=== PATIENT | male | born 1975 | race African-American/Black ===

== ENCOUNTER 2016-10-31 20:23 | Inpatient (IN) ==
--- NOTE | 2016-10-31 20:39 | Emergency Department Note ---
Disposition Clinical Impression: Cocaine abuse Chest pain Qualifiers: Chest pain type: unspecified Qualified Code(s): R07.9 - Chest pain, unspecified Disposition: Admitted As Inpatient Condition: Good Time of Disposition: 23:55 Chest Pain HPI - General Chief Complaint: ED Chest Pain Stated Complaint: Chest Pain Time Seen by Provider: 10/31/16 20:31 Source: patient Mode of arrival: EMS Vital Signs Reviewed: Yes Nursing Notes Reviewed: Yes - History of Present Illness HPI Narrative: 40-year-old male presents to the ED via EMS for chest pain. Patient states that she had used cocaine on Saturday and started having chest pain. So [facility] because he wanted to be admitted for drug rehabilitation. Once he is at the [facility] and they felt that he should be worked up for his chest pain and sent him to our ED. Patient states that his chest pain is on the left side localized to a small area and a burning sensation that radiates up to his neck and into his back and shoulder the symptoms are associated with sweating. States the pain is a 5.5 out of 10. Patient states he has not used any cocaine since Saturday but has used his pain medication prescribed for his back. Patient states that he smoked and snorted the cocaine. - Related Data Home Medications Medication Instructions Recorded Confirmed Atorvastatin Calcium [Lipitor] 20 mg PO HS 10/31/16 10/31/16 Betamethasone Valerate 1 appl TP BID 10/31/16 10/31/16 BuPROPion SR (12 HR) [Wellbutrin 150 mg PO BID 10/31/16 10/31/16 SR] Dextrose [Glucose] 4 gm PO AD PRN 10/31/16 10/31/16 Ergocalciferol (VITAMIN D2) 50,000 unit PO QWEEK 10/31/16 10/31/16 [Vitamin D2] Fexofenadine HCl 60 mg PO BID PRN 10/31/16 10/31/16 Fluticasone Propionate Nasal 100 mcg NS DAILY 10/31/16 10/31/16 [Flonase] Gabapentin [Neurontin] 500 mg PO TID 10/31/16 10/31/16 Insulin ASPART [Novolog Flexpen] 15 unit SQ QPM 10/31/16 10/31/16 Insulin ASPART [Novolog Flexpen] 20 unit SQ QAM 10/31/16 10/31/16 Insulin Glargine [Lantus] 40 unit SQ BID 10/31/16 10/31/16 Lisinopril [Zestril] 20 mg PO BID 10/31/16 10/31/16 Meloxicam [Mobic] 7.5 mg PO DAILY 10/31/16 10/31/16 Metoprolol [Lopressor] 12.5 mg PO BID 10/31/16 10/31/16 Montelukast [Singulair] 10 mg PO HS 10/31/16 10/31/16 Nicotine Patch [Nicoderm] 14 mg TD DAILY 10/31/16 10/31/16 Oxycodone HCl/Acetaminophen 1 each PO Q8H PRN 10/31/16 10/31/16 [Percocet 10-325 mg Tablet] Sildenafil Citrate [Viagra] 50 mg PO AD PRN 10/31/16 10/31/16 Tizanidine HCl 4 mg PO TID PRN 10/31/16 10/31/16 Allergies Allergy/AdvReac Type Severity Reaction Status Date / Time iodine Allergy Swelling Verified 10/31/16 20:30 of Lip/Tongue/Throat shellfish derived Allergy Swelling Verified 10/31/16 20:30 of Lip/Tongue/Throat hydrochlorothiazide AdvReac Abdominal Verified 10/31/16 20:30 Pain metformin AdvReac Abdominal Verified 10/31/16 20:30 Pain All systems ED: reviewed and negative except as stated. Constitutional: Reports: other (Swelling). Denies: fever Cardiovascular: Reports: chest pain. Denies: palpitations Respiratory: Reports: dyspnea Gastrointestinal: Denies: abdominal pain Musculoskeletal: Reports: back pain, neck pain Neurological: Reports: other (States that he had some burning in his left leg after walking a long distance.) Physical Exam - General Limitations: no limitations General appearance: alert, in no apparent distress - Head Head exam: atraumatic, normocephalic - Eye Eye exam: Present: normal appearance - Neck Neck exam: Present: normal inspection, trachea midline - Chest Chest inspection: Present: normal inspection, symmetric chest wall rise - Respiratory Respiratory exam: Present: normal lung sounds bilaterally. Absent: respiratory distress, wheezes - Cardiovascular Cardiovascular exam: Present: regular rate, normal rhythm, +S1, +S2 - Abdominal Exam Abdominal exam: Present: soft, Non-Tender, normal bowel sounds - Back Exam Back exam: Present: normal inspection - Neurological Exam Neurological exam: Present: alert, oriented X3 - Psychiatric Psychiatric exam: Present: normal affect, normal mood - Skin Skin exam: Present: warm, dry, intact Course Vital Signs Temperature 98.5 F 10/31/16 20:30 Pulse Rate 80 10/31/16 20:30 Respiratory Rate 18 10/31/16 20:30 Blood Pressure 146/105 10/31/16 20:30 O2 Sat by Pulse Oximetry 100 10/31/16 20:30 Temperature 97.9 F 10/31/16 23:54 Pulse Rate 72 10/31/16 23:54 Respiratory Rate 16 10/31/16 23:54 Blood Pressure 132/85 10/31/16 23:54 O2 Sat by Pulse Oximetry 99 10/31/16 23:54 Oxygen Delivery Oxygen Delivery Room Air Chest Pain - MDM Narrative Medical decision making narrative: 40-year-old male presents to ED with chest pain. States that he uses cocaine on Saturday. [facility] for [facility] for [facility] on they had a pretty much normal workup there but felt that he should be evaluated here. Due to the patient still having chest pain we will admit the patient. A workup that was done at the [facility] had negative troponin, white count 8.4, sodium 132, potassium 4.7 , glucose 3:30, creatinine 1.4. Patient will be admitted for chest pain rule out and patient stated that he would like to enter a rehabilitation treatment. I spoke with the hospitalist and due to slight elevation in V2 on EKG he asked that we speak with cardiology to make sure that he is okay for admission. Metabolic Specialist Dr. Miller said that if it is less than 1.5 mm of elevation that it was not enough elevation to indicate intervention. Patient was accepted by hospitalist and admitted. - Medical Records Medical records reviewed: Yes I reviewed the patient's medical records. - Lab Data Lab results reviewed: Yes I reviewed the patient's lab results. - Radiology Data Radiology results reviewed: Yes I reviewed the patient's radiology results. - EKG Data EKG attestation: Yes I reviewed and interpreted this EKG. EKG results narrative: EKG shows sinus rhythm at a rate of 72. pr interval of 13 QRS duration of 98 QTc of 401 axis normal to slightly left axis deviation. less than 1mm ST elevation in V2 and V3. Attestation Statement - Attestation Attestation: I examined this patient and my medical decision-making was reviewed with the BLAST SETTER/PA/Advanced Practice Nurse/Resident Physician. I agree with the documented findings, disposition and treatment plan as described except to the extent set forth below. Male patient with transfer from the [facility]. He was found to have chest pain after several days of cocaine use. He has no recent stress testing or cardiac catheterization. His EKG shows minimal ST segment changes but no STEMI. His cardiac biomarkers were checked and then subsequently rechecked both of which were negative. He was given aspirin, nitroglycerin, and valium. He did have minimal ongoing chest pain. Plan to admit for ACS rule out and evaluation of cocaine abuse in the setting of chest pain.
[2016-10-31] MEDS ORDERED: *HR* FentaNYL (PF) 100 MCG/2 ML VIAL IVP ONE (22:24)
[2016-10-31] MEDS ORDERED: diazePAM 10 MG/2 ML SYRINGE IVP ONE (22:24)
[2016-11-01] MEDS ORDERED: *HR* Morphine 2 MG/ML SYRINGE IVP PRN (01:32)
[2016-11-01] MEDS ORDERED: Naloxone 0.4 MG/ML INJ IVP PRN (01:32)
[2016-11-01] MEDS ORDERED: Acetaminophen 325 MG TABLET PO PRN (01:32)
[2016-11-01] MEDS ORDERED: Ondansetron ODT 4 MG TAB.RAPDIS SL PRN (01:32)
[2016-11-01] MEDS ORDERED: *HR* Dextrose 50 % in Water (Syg) 50 ML SYRINGE IVP PRN (01:35)
[2016-11-01] MEDS ORDERED: D5% in Water 1,000 ML IVC PRN (01:35)
[2016-11-01] MEDS ORDERED: Dextrose Gel 15 GM PO PRN ×2 (01:35)
[2016-11-01] MEDS ORDERED: *HR* OxyCODONE/APAP 10/325 TABLET PO PRN (01:38)
[2016-11-01] MEDS ORDERED: Loratadine 10 MG TABLET PO PRN (01:38)
--- NOTE | 2016-11-01 01:41 | Internal Med History&Physical ---
Date of Encounter: 11/01/16 Time of Encounter: 01:38 Assessment and Plan (1) Chest pain Current visit: Yes Status: Acute Noncardiac chest pain by description left-sided sharp radiating to left shoulder has been present for 5 days. Unsure of exacerbating factors. - EKG demonstrated normal sinus rhythm with [address] elevation on leads V2 but no other leads. Risk factors: Cocaine abuse on a beta napoleon, uncontrolled type 2 diabetes, hypertension, daily smoker Plan: - Troponins 3, nothing by mouth currently, echocardiogram, morphine, statin, aspirin. - Discontinue beta napoleon Stress test Qualifiers: Chest pain type: unspecified Qualified Code(s): R07.9 - Chest pain, unspecified (2) Cocaine abuse Current visit: Yes Status: Acute Patient was educated on the risks of continued cocaine abuse with his multiple medical conditions. He was highly advised to continue with drug treatment through the [facility]. (3) Type II diabetes mellitus Current visit: Yes Status: Acute Uncontrolled Plan: - Before meals at bedtime glucose checks, low-dose sliding scale insulin Qualifiers: Diabetes mellitus complication detail: with unspecified neuropathy Qualified Code(s): E11.40 - Type 2 diabetes mellitus with diabetic neuropathy, unspecified; Z79.4 - parts counterman (current) use of insulin (4) HTN (hypertension) Current visit: Yes Status: Acute Continue patients lisinopril. Discontinue beta napoleon. Monitor vitals, blood pressure continues to rise patient may require hydralazine addition. Qualifiers: Qualified Code(s): I10 - Essential (primary) hypertension (5) Tobacco abuse Current visit: Yes Status: Acute Pack per day smoker, tobacco abuse of his multiple medical risk factors for increased cardiac disease. Tobacco cessation discussed. Internal Medicine - H&P: HPI History of present illness: 40 yo -Sammar[place] male transferred from the [facility] with chest pain. Patient states that for started having left-sided chest pain that radiated to his neck on the left side described as sharp and at its worst 10/10 on Saturday after snorting cocaine. He states that he has an addiction to cocaine has been doing for years. This time he snorted cocaine he developed this left-sided chest pain that did not improve. He continued through the weekend waxed and waned in nature. He is unsure if ambulating, walking on flat surfaces are upstairs made it worse but he did have episodes where the pain would be 5 out of 10 in escalate to a 10 out of 10. He denies any history of having chest pain prior or any known heart disease. He is a uncontrolled type II diabetic with diminished sensory in his bilateral feet. He says he supposed to be taking aspirin at home but since he ran out he has not been taking it for at least a month. He did notice that his chest pain did improve when he arrived at our emergency department after transfer from the [facility] and received aspirin. He presented today to the [facility] for evaluation for left- sided chest pain that was not improving. Prior he was advised not to do cocaine anymore and says he has not used any drugs since Saturday. He denies substernal chest pressure or radiation up to his jaw or down his arm. He states that he is compliant with his current medications despite telling me that he has not been filling his aspirin. Currently he is chest pain-free which she said completely resolved after receiving fentanyl was IV while in the emergency department. He does have a significant family history of uncontrolled diabetics including mom dad and siblings also have heart disease. He mentions that he does have some gait instability ever since he had a stroke several years ago when he was 34. 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 He said that he followed up with neurologist and refuses any intervention on the brain aneurysm. He said that he had follow-up MRI scans that the aneurysm healed itself. When asked if he was taking his beta napoleon while doing cocaine he said yes. He said that taking the beta napoleon actually made him feel better. He denies any current headaches, blurred vision, nausea vomiting diarrhea constipation, palpitations, shortness of breath. He has had increased urination but said that is due to being hyperglycemic. When asked about his foot health he says that he had kicked her radiator 2 months ago with his left foot and has some bruising on his toes but never followed up for further evaluation. He continues to have discomfort when stepping wrong on his foot. Past Med Surg Social Fam HX - Past Medical History Medical history: diabetes - Social History Smoking Status: Current every day smoker Smokeless Tobacco Status: No Alcohol use: occasionally Drug use: cocaine, opiates, methamphetamine Internal Medicine - H&P: Meds Atorvastatin Calcium [Lipitor] 20 mg PO HS 10/31/16 [History] Betamethasone Valerate 1 appl TP BID 10/31/16 [History] BuPROPion SR (12 HR) [Wellbutrin SR] 150 mg PO BID 10/31/16 [History] Dextrose [Glucose] 4 gm PO AD PRN 10/31/16 [History] Ergocalciferol (VITAMIN D2) [Vitamin D2] 50,000 unit PO QWEEK 10/31/16 [History] Fexofenadine HCl 60 mg PO BID PRN 10/31/16 [History] Fluticasone Propionate Nasal [Flonase] 100 mcg NS DAILY 10/31/16 [History] Gabapentin [Neurontin] 500 mg PO TID 10/31/16 [History] Insulin ASPART [Novolog Flexpen] 15 unit SQ QPM 10/31/16 [History] Insulin ASPART [Novolog Flexpen] 20 unit SQ QAM 10/31/16 [History] Insulin Glargine [Lantus] 40 unit SQ BID 10/31/16 [History] Lisinopril [Zestril] 20 mg PO BID 10/31/16 [History] Meloxicam [Mobic] 7.5 mg PO DAILY 10/31/16 [History] Metoprolol [Lopressor] 12.5 mg PO BID 10/31/16 [History] Montelukast [Singulair] 10 mg PO HS 10/31/16 [History] Nicotine Patch [Nicoderm] 14 mg TD DAILY 10/31/16 [History] Oxycodone HCl/Acetaminophen [Percocet 10-325 mg Tablet] 1 each PO Q8H PRN [History] Sildenafil Citrate [Viagra] 50 mg PO AD PRN 10/31/16 [History] Tizanidine HCl 4 mg PO TID PRN 10/31/16 [History] Allergies iodine Allergy (Verified 10/31/16 20:30) Swelling of Lip/Tongue/Throat shellfish derived Allergy (Verified 10/31/16 20:30) Swelling of Lip/Tongue/Throat hydrochlorothiazide Adverse Reaction (Verified 10/31/16 20:30) Abdominal Pain metformin Adverse Reaction (Verified 10/31/16 20:30) Abdominal Pain All Systems PM: A 10-system review of systems was performed and is negative for pertinent findings except as documented above in the HPI. - Constitutional Constitutional: no chills, no fever(s), no night sweats - EENT Eyes: no change in vision, no discharge, no pain, no photophobia Ears: no ear discharge, no ear pain, no tinnitus Nose, mouth and throat: no dysphagia, no nasal discharge, no neck pain, no sore throat - Cardiovascular Cardiovascular ROS IM: chest pain, no diaphoresis, no dyspnea, no lightheadedness, no palpitations, no syncope - Respiratory Respiratory: no cough, no dyspnea, no wheezing, no excessive phlegm production - Gastrointestinal Gastrointestinal: no abdominal pain, no diarrhea, no hematemesis, no hematochezia, no melena, no nausea, no vomiting - Musculoskeletal Musculoskeletal ROS IM: no numbness, no tingling - Integumentary Integumentary IM: no rash, no unusual bruising - Neurological Neurological ROS: no confusion, no convulsions, no focal weakness, no numbness, no tingling, no tremor(s) - Hematologic/Lymphatic Hematologic/Lymphatic: no easy bruising - Constitutional Vitals: Temp Pulse Resp BP Pulse Ox 97.9 F 72 16 132/85 99 10/31/16 23:54 10/31/16 23:54 10/31/16 23:54 10/31/16 23:54 10/31/16 23:54 Exam: General: Patient alert, awake, oriented 3, interactive, in no acute distress HEENT: Normocephalic, atraumatic, pupils equal reactive to light, nasal cavity patent and open septum median position, oral mucosa moist, uvula midline, neck supple trachea midline no palpable lymphadenopathy, no thyromegaly. Chest: Symmetric bilateral correlating with respiratory effort, effort nonlabored. Cardiac: Regular rate and rhythm, positive S1 and S2. no bruits appreciated bilateral carotids, Radial pulses 2+ bilateral, posterior tibial and dorsal pedal pulses 1+ bilateral. Respiratory: Clear to auscultation all lung rankni Abdomen: Soft, nontender, positive bowel sounds, no palpable masses appreciated on examination Extremities: Symmetric bilateral, bilateral lower extremities without erythema or edema patient moving all 4 extremities spontaneously. Patients fourth digit on his left foot demonstrates ecchymosis and tenderness to palpation. Patient has hammertoes bilaterally Neurologic: No focal deficits appreciated on examination. Face symmetric, muscle strength symmetric bilateral upper and lower extremities. Internal Med - H&P Results - Labs CBC & Chem 7: 11/01/16 01:48
[2016-11-01 06:14] LABS: Basophils # 0.1 K/mcL (0.0-0.2); Basophils % 0.6 %; Eosinophils # 0.1 K/mcL (0.0-0.6); Eosinophils % 1.3 %; Hematocrit 46.4 % (37.5-50.1); Immature Granulocytes % 0.3 % (0-4); Lymphocytes # 3.8 K/mcL (0.6-4.6); Lymphocytes % 48.8 %; Mean Corpuscular HGB Conc 34.5 g/dL (31.6-35.5); Mean Corpuscular Hemoglobin 30.2 pg (28.0-33.3); Mean Corpuscular Volume 87.5 fL (83.0-100.0); Mean Platelet Volume 10.5 fL (9.4-12.4); Monocytes # 0.4 K/mcL (0.0-1.3); Monocytes % 5.7 %; Neutrophils # 3.3 K/mcL (1.6-8.9); Platelet Count 257 K/mcL (140-400); Segmented Neutrophils % 43.3 %
[2016-11-01 06:31] LABS: Alanine Aminotransferase 18 Units/L (0-55); Albumin 3.8 g/dL (3.5-5.0); Alkaline Phosphatase 90 Units/L (38-126); Aspartate Amino Transferase 19 Units/L (5-34); BUN/Creatinine Ratio 13 (6-26); Bilirubin,Total 0.9 mg/dL (0.2-1.2); Blood Urea Nitrogen 15 mg/dL (8-26); Calcium 9.7 mg/dL (8.6-10.8); Carbon Dioxide 24 mEq/L (19-29); Chloride 96 mEq/L (98-109); Chol/HDL Ratio 7.3 (0-4.9); Cholesterol 213 mg/dL (< 200); Globulin 3.8 g/dL (2.4-3.5); Glucose 334 mg/dL (70-99); HDL Cholesterol 29 mg/dL (40-59); LDL Cholesterol,Calculated 138 mg/dL (0-99); Osmolality,Calculated 286 (280-300); Potassium 3.9 mEq/L (3.5-4.5); Total Protein 7.6 g/dL (6.0-8.3); Triglycerides 229 mg/dL (< 150); eGFR For African Americans > 60 (> 60); eGFR For Non-African Americans > 60 (> 60)
[2016-11-01 06:32] LABS: Sodium 131 mEq/L (136-145)
[2016-11-01] MEDS ORDERED: FluocinoNIDE 0.05% CRM 15 GM TUBE TP SCH (09:00)
[2016-11-01] MEDS ORDERED: BuPROPion SR (12 HR) 150 MG TABLET PO SCH (09:00)
[2016-11-01] MEDS ORDERED: NON-FORMULARY MEDICATION 1 EACH EACH (Insulin Glargine [Lantus] 20 UNIT) SQ SCH (09:00)
[2016-11-01] MEDS ORDERED: Nicotine 14 MG PATCH.TD24 TD SCH (09:00)
[2016-11-01] MEDS ORDERED: Insulin DETEMIR 100 UNIT/ML X5UNITS SQ SCH (09:00)
[2016-11-01] MEDS ORDERED: Fluticasone Propionate Nasal 50 MCG/SPRAY BOTTLE NS SCH (09:00)
[2016-11-01] MEDS ORDERED: Gabapentin 100 MG CAPSULE PO SCH (09:00)
[2016-11-01] MEDS ORDERED: Lisinopril 20 MG TABLET PO SCH (09:00)
[2016-11-01] MEDS ORDERED: Regadenoson 0.4 MG/5 ML SYRINGE IVP ONE (09:19)
[2016-11-01] MEDS: Insulin LISPRO 300 UNITS/3 ML VIAL SQ SCH ×2 (11:26→11:38)
[2016-11-01 11:50] VITALS: BP 168/98
--- NOTE | 2016-11-01 12:02 | Nuclear Medicine Stress Report ---
Regadenoson Nuclear Stress Name: Unique Hampton Date of Study: 11/01/2016 Date: 1975 Ht: 73.0 in Medical Record#: [id number] Age: 40 Wt: 254.0 lb Gender: Male Order #: [id number] Location: [facility] Room: Supervising Provider: Antonio Barrios CNP Reading Physician: Clyde Terrell MD, [facility] Ordering Physician: Sarina Reed MD Primary Care Physician: [facility] Stress Technologist: Jud Hobbs RRT,[facility] Bonded Strand Operator: Erik Lopez Indications: Chest Pain Impression: Patient reported mild chest pain prior to the test. Chest pain did not change with regadenoson. No significant ECG changes with regadenoson. Gated LVEF = 57%. Perfusion imaging was negative for ischemia or infarct. History: Hypertension Diabetes Hypercholesteremia History of Smoking Stress Test Summary: Stress Test Type: Pharmacologic Regadenoson 0.4mg/5ml given IV Baseline Information: Initial Heart Rate: 94 Blood Pressure: 126/92 Stress Information: Test Terminated Due to (primary): As per protocol Maximum Blood Pressure: 138/86 Maximum Heart Rate: 120 Percent Maximum Heart Rate Achieved: 67 Double Product: [id number] Symptoms: Chest pain Nuclear Summary: SPECT myocardial perfusion imaging using Tc99m Sestamibi given intravenously was performed at rest and following cardiac stress testing. The resting images were obtained following initial dose of 11.7 mCi. Following stress an additional dose of 33.0 mCi was given at peak exercise or 30 seconds post regadenoson infusion. Findings: Stress Note * Resting ECG demonstrated normal sinus rhythm. * No baseline arrhythmias were noted. * Patient reported mild chest pain prior to the test. Chest pain did not change with regadenoson. * No arrhythmias were noted during stress. 1 PVC noted in recovery. * No significant ECG changes with regadenoson. Hemodynamic responses * Normal hemodynamic responses to pharmacologic stress. Study Quality * Study quality is average. Gated EF % * Gated LVEF = 57%. Left Ventricle * The left ventricle is not dilated. * Normal Segmental Perfusion in rest. * Normal segmental perfusion in stress. * Inferior artifact noted. TID * No evidence of transient ischemic dilatation. Updated by Clyde Terrell MD, [facility] on 11/01/2016 11:57:41 AM electronically signed on 11/01/2016 11:58:05 AM with status of Final
--- NOTE | 2016-11-01 14:05 | Discharge Summary ---
Date of Encounter: 11/01/16 Time of Encounter: 13:57 - Discharge Diagnosis (1) Chest pain Priority: Primary Status: Acute Comments: Resolved s/p NM stress test negative for ishcemia Qualifiers: Chest pain type: unspecified Qualified Code(s): R07.9 - Chest pain, unspecified (2) Cocaine abuse Priority: Primary Status: Acute (3) HTN (hypertension) Priority: Secondary Status: Acute Qualifiers: Qualified Code(s): I10 - Essential (primary) hypertension (4) Tobacco abuse Priority: Secondary Status: Acute (5) Type II diabetes mellitus Priority: Secondary Status: Acute Qualifiers: Diabetes mellitus complication detail: with unspecified neuropathy Qualified Code(s): E11.40 - Type 2 diabetes mellitus with diabetic neuropathy, unspecified; Z79.4 - [facility] (current) use of insulin - Discharge Medications Prescriptions: Aspirin Enteric Coated [Aspirin EC] 81 mg PO DAILY #30 tablet.dr Reyes Medications: Atorvastatin Calcium [Lipitor] 20 mg PO HS 10/31/16 [History] Betamethasone Valerate 1 appl TP BID 10/31/16 [History] BuPROPion SR (12 HR) [Wellbutrin SR] 150 mg PO BID 10/31/16 [History] Ergocalciferol (VITAMIN D2) [Vitamin D2] 50,000 unit PO QWEEK 10/31/16 [History] Fexofenadine HCl 60 mg PO BID PRN 10/31/16 [History] Fluticasone Propionate Nasal [Flonase] 100 mcg NS DAILY 10/31/16 [History] Gabapentin [Neurontin] 500 mg PO TID 10/31/16 [History] Insulin ASPART [Novolog Flexpen] 15 unit SQ QPM 10/31/16 [History] Insulin ASPART [Novolog Flexpen] 20 unit SQ QAM 10/31/16 [History] Insulin Glargine [Lantus] 40 unit SQ BID 10/31/16 [History] Lisinopril [Zestril] 20 mg PO BID 10/31/16 [History] Meloxicam [Mobic] 7.5 mg PO DAILY 10/31/16 [History] Montelukast [Singulair] 10 mg PO HS 10/31/16 [History] Nicotine Patch [Nicoderm] 14 mg TD DAILY 10/31/16 [History] Oxycodone HCl/Acetaminophen [Percocet 10-325 mg Tablet] 1 each PO Q8H PRN [History] Sildenafil Citrate [Viagra] 50 mg PO AD PRN 10/31/16 [History] Tizanidine HCl 4 mg PO TID PRN 10/31/16 [History] Aspirin Enteric Coated [Aspirin EC] 81 mg PO DAILY #30 tablet. 11/01/16 [Rx] Allergies/Adverse Reactions: Allergies iodine Allergy (Verified 10/31/16 20:30) Swelling of Lip/Tongue/Throat shellfish derived Allergy (Verified 10/31/16 20:30) Swelling of Lip/Tongue/Throat hydrochlorothiazide Adverse Reaction (Verified 10/31/16 20:30) Abdominal Pain metformin Adverse Reaction (Verified 10/31/16 20:30) Abdominal Pain Date of admission: 11/01/16 08:08 Primary care physician: PCP TAYLOR - Patient Status Disposition: Home, Self-Care Condition: Good - Discharge Instructions [facility] With: [facility]Primary Care Provider[facility] - Hospital course: Mr. Hampton is a 40 year old Afro-Trist[place] gentlemen with known past medical history of hypertension hyperlipidemia diabetes type II's chronic substance abuse with cocaine who went to a [facility] yesterday for chest pain and patient was transferred to our hospital for further care. 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 He did have NM stress test today which came back is negative for ischemia. Patient remained asymptomatic throughout this hospitalization. I did rehabilitation counsellor the patient about quitting smoking tobacco as well as doing cocaine. I recommend him to continue taking all his other home medications except metoprolol due to his cocaine abuse. Also start him on aspirin 81 mg PO daily. Patient did mention that he wanted to go to a walk in [facility] for substance addiction at the [facility] today - Time Spent with Patient Total time spent providing and/or coordinating discharge services: Less than 30 minutes - Constitutional Vitals: Temp Pulse Resp BP Pulse Ox 98.6 F 89 16 168/98 98 11/01/16 11:49 11/01/16 11:49 11/01/16 11:49 11/01/16 11:49 11/01/16 11:49 General appearance: Present: A&O X 3, pleasant, answers questions appropriately - Respiratory Respiratory exam: Present: CTAB. Absent: accessory muscle use, rales, rhonchi, wheezes - Cardiovascular Cardiovascular exam: Present: RRR, +S1, +S2. Absent: diastolic murmur, gallop, rubs, systolic murmur - GI/Abdominal GI/Abdominal exam: Present: normal bowel sounds, soft, no peritoneal signs. Absent: distended, tenderness - Psychiatric Psychiatric exam: Present: normal affect, normal mood
--- NOTE | 2016-11-01 14:11 | Electrocardiograph Report ---
[place] [id number] Test Date: 2016-10-31 Pat Name: Unique Hampton Department: 103 Room: 3A Gender: M Medical Billing Specialist: MIIRAN : 1975 Requested By: Jay Cruz Order Number: [id number] Reading MD: Teo Gomez Measurements Intervals [place] Rate: 72 P: 27 [place]: 183 QRS: 2 QRSD: 98 T: 32 QT: 376 QTc: 401 Interpretive Statements SINUS RHYTHM ST ELEVATION, PROBABLY EARLY REPOLARIZATION Electronically Signed On 11-01-2016 14:09:24 EDT by Teo Gomez
[2016-11-01] MEDS ORDERED: Insulin LISPRO 300 UNITS/3 ML VIAL SQ SCH (21:00)
== END 2016-11-01 15:05 | disposition home or self-care (01) | DRG 313 ==
LOC: EMEROO 20:23 → 3ANU 22:54 → INTOOBSV 22:54 → 3ANU 23:25
PROVIDERS: ADMIT Internal Medicine; ATTEND Family Medicine